=== PATIENT | male | born 1940 | race Caucasian/White ===

== ENCOUNTER 2016-07-24 17:45 | Emergency (ER) | payer MEDICARE, OTHER ==
[~2016-07-24] VITALS: Ht 185.4 cm; Wt 102.1 kg
[2016-07-24] MEDS ORDERED: LOSA100T36 (18:05)
[2016-07-24] MEDS ORDERED: FENO145T (18:05)
[2016-07-24] MEDS ORDERED: BABY (18:05)
[2016-07-24 20:50] VITALS: BP 133/93
--- NOTE | 2016-07-24 22:38 | REP ---
LEFT SHOULDER, COMPLETE: 07/24/2016. Clinical history: Trauma, patient fell down stairs. Four views provided. AC and glenohumeral joints show moderately severe degenerative change. There is no fracture of the clavicle or widening of the AC joint. Glenohumeral joint shows adequate range of motion with internal external rotation. No subluxation or dislocation on the scapular Y-view nor abnormal soft-tissue calcification. Clavicle, ribs, scapula and humerus without fracture. Impression: 1. Degenerative changes of the AC and glenohumeral joints without fracture, subluxation, soft tissue calcification or other acute finding. Signed by Neville Painter MD 07/25/2016 08:11 P
--- NOTE | 2016-07-24 22:40 | REP ---
LEFT ELBOW SERIES, COMPLETE: 07/24/2016. Clinical history: Trauma, patient fell on stairs. No prior studies. There is intra-articular complete fracture with distraction of the olecranon, the remainder of the ulna by at least 9 mm posteriorly. The triceps is still attached. There is prominent soft tissue swelling and hematoma. Radial head and capitellum align normally without subluxation, dislocation or fracture. I do not see supracondylar fracture or fractures through epicondyles of the distal humerus. Impression: 1. Distracted displaced fracture through the olecranon with the fracture fragment distracted proximally at least 9 mm with triceps attachment still in place. Signed by Neville Painter MD 07/25/2016 08:11 P
== END 2016-07-24 21:01 | disposition home or self-care (01) ==
LOC: M ED 20:34
DX: S52.022A Displaced fracture of olecranon process without intraarticular extension of left ulna, initial encounter for closed fracture (principal); S20.412A Abrasion of left back wall of thorax, initial encounter; S00.01XA Abrasion of scalp, initial encounter; S50.312A Abrasion of left elbow, initial encounter; W10.8XXA Fall (on) (from) other stairs and steps, initial encounter; Y92.018 Other place in single-family (private) house as the place of occurrence of the external cause; Y93.89 Activity, other specified; Y99.8 Other external cause status; E78.00 Pure hypercholesterolemia, unspecified

== ENCOUNTER 2020-02-22 15:39 | Emergency (ER) | payer MEDICARE, OTHER ==
[~2020-02-22] VITALS: Ht 185.4 cm; Wt 96.2 kg
[~2020-02-22 15:39] MED LIST: BABY; FENO145T7; LOSA100T50
[2020-02-22] MEDS ORDERED: XARE15TA (15:49)
[2020-02-22 16:44] LABS: BASO % 0.5 % (0.0-1.0); EOS # 0.1 10^3/uL (0.0-0.5); EOS % 0.7 % (0.0-3.0); HEMATOCRIT 47.9 % (42.0-52.0); HEMOGLOBIN 15.9 g/dl (13.5-17.5); LYMPH # 1.4 10^3/uL (1.5-5.0); LYMPH % 16.9 % (24.0-44.0); MEAN CORPUSCULAR HEMOGLOBIN 31.5 pg (27.0-33.0); MEAN CORPUSCULAR HGB CONC 33.2 g/dl (32.0-36.5); MEAN CORPUSCULAR VOLUME 94.9 fl (80.0-96.0); MONO # 0.8 10^3/uL (0.0-0.8); MONO % 9.1 % (0.0-5.0); NEUTROPHILS % 72.2 % (36.0-66.0); PLATELET COUNT, AUTOMATED 174 10^3/uL (150-450); RED BLOOD COUNT 5.05 10^6/uL (4.30-6.10); WHITE BLOOD COUNT 8.3 10^3/uL (4.0-10.0)
[2020-02-22 17:14] LABS: BLOOD UREA NITROGEN 18 MG/DL (7-18); CALCIUM LEVEL 9.9 MG/DL (8.8-10.2); CARBON DIOXIDE LEVEL 29 MEQ/L (21-32); CHLORIDE LEVEL 104 MEQ/L (98-107); CK-MB VALUE MASS 2.3 NG/ML (<3.6); CPK CREATINE PHOSPHOKINASE 128 U/L (39-308); CREATININE FOR GFR 1.36 MG/DL (0.70-1.30); GLOMERULAR FILTRATION RATE 53.8 (>42); GLUCOSE, FASTING 102 MG/DL (70-100); POTASSIUM SERUM 4.1 MEQ/L (3.5-5.1); SODIUM LEVEL 138 MEQ/L (136-145); TROPONIN I < 0.02 NG/ML (< 0.10)
[2020-02-22] MEDS ORDERED: ISOVUE-370 76% 100ML VIAL As Ordered ONE (17:52)
--- NOTE | 2020-02-22 18:21 | REPVR ---
PROCEDURE INFORMATION: Exam: CT Head Without Contrast Exam date and time: 02/22/2020 5:20 PM Age: 79 years old Clinical indication: Injury or trauma; Fall; Blunt trauma (contusions or hematomas); Additional info: Trauma on Wednesday TECHNIQUE: Imaging protocol: Computed tomography of the head without contrast. Radiation optimization: All CT scans at this facility use at least one of these dose optimization techniques: automated exposure control; mA and/or kV adjustment per patient size (includes targeted exams where dose is matched to clinical indication); or iterative reconstruction. COMPARISON: No relevant prior studies available. FINDINGS: Brain: There is no acute intracranial hemorrhage, cerebral edema, or midline shift. Age-related cerebral and cerebellar volume loss is present. Cerebral ventricles: No hydrocephalus. Bones/joints: No acute fracture. Paranasal sinuses: There is no acute sinusitis. Mastoid air cells: The mastoid air cells are clear. Orbital cavity: The included orbital structures are unremarkable. Vasculature: Atherosclerotic calcifications are seen involving the cavernous carotid arteries. Soft tissues: Unremarkable. IMPRESSION: No acute intracranial abnormality. Electronically signed by: Brien Mejia On 02/22/2020 18:21:30 PM
--- NOTE | 2020-02-22 18:26 | REPVR ---
PROCEDURE INFORMATION: Exam: CT Cervical Spine Without Contrast Exam date and time: 02/22/2020 5:20 PM Age: 79 years old Clinical indication: Injury or trauma; Fall; Blunt trauma; Additional info: Trauma on Wednesday TECHNIQUE: Imaging protocol: Computed tomography images of the cervical spine without contrast. Radiation optimization: All CT scans at this facility use at least one of these dose optimization techniques: automated exposure control; mA and/or kV adjustment per patient size (includes targeted exams where dose is matched to clinical indication); or iterative reconstruction. COMPARISON: No relevant prior studies available. FINDINGS: Bones/joints: There is straightening of the normal cervical lordosis. No acute fracture is identified. Discs/Spinal canal/Neural foramina: Moderate/severe degenerative changes of the cervical spine are present. There is no severe spinal canal stenosis. Severe multilevel neural foraminal narrowing from uncinate spurring and facet arthropathy is noted. Soft tissues: Unremarkable. Lungs: Centrilobular emphysema is present in the upper lobes. Vasculature: Atherosclerotic calcifications are present at the carotid bifurcations. IMPRESSION: 1. No acute abnormality. 2. Chronic findings as discussed above. Electronically signed by: Brien Mejia On 02/22/2020 18:25:37 PM
--- NOTE | 2020-02-22 18:35 | REPVR ---
PROCEDURE INFORMATION: Exam: CT Chest With Contrast Exam date and time: 02/22/2020 5:20 PM Age: 79 years old Clinical indication: Injury or trauma; Fall; Blunt trauma (contusions or hematomas); Additional info: Trauma on Wednesday TECHNIQUE: Imaging protocol: Computed tomography of the chest with intravenous contrast. 3D rendering (Not supervised by radiologist): MIP and/or 3D reconstructed images were created by the technologist. Radiation optimization: All CT scans at this facility use at least one of these dose optimization techniques: automated exposure control; mA and/or kV adjustment per patient size (includes targeted exams where dose is matched to clinical indication); or iterative reconstruction. Contrast material: ISOVUE 370; Contrast volume: 75 ml; Contrast route: INTRAVENOUS (IV); COMPARISON: CR CHEST 2 VIEW 09/19/2013 10:19 AM (report not provided) FINDINGS: Lungs: The lungs demonstrate moderate upper lobe predominant centrilobular emphysematous disease. Mild dependent atelectasis is present bilaterally. There is also mild airspace consolidation or contusion in the posterolateral aspect of the left lower lobe inferiorly. Pleural space: Unremarkable. No pneumothorax. No pleural effusion. Heart: Coronary artery calcifications are noted. No significant pericardial effusion. Mediastinal space: No mediastinal hematoma is identified. Aorta: The thoracic aorta is nonaneurysmal. Atherosclerotic vascular calcifications are noted. Lymph nodes: Unremarkable. No enlarged lymph nodes. Gallbladder and bile ducts: Stones are present in the gallbladder. Bones/joints: There are acute, nondisplaced fractures of the left 6th and 7th ribs laterally. No other acute fracture of the visualized skeleton is identified. There are also multiple chronic left rib fractures. Degenerative changes involve the spine and shoulders. Soft tissues: Unremarkable. IMPRESSION: 1. Acute, nondisplaced fractures of the left 6th and 7th ribs laterally. 2. Mild airspace consolidation or contusion in the posterolateral aspect of the left lower lobe inferiorly. 3. Moderate upper lobe predominant emphysematous disease. 4. Cholelithiasis. Electronically signed by: Alejo Babcock On 02/22/2020 18:34:53 PM
[2020-02-22 20:00] VITALS: BP 171/84
--- NOTE | 2020-02-23 10:00 | ECGEPIP ---
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
== END 2020-02-22 20:20 | disposition home or self-care (01) ==
LOC: M ED 15:39
DX: S22.42XA Multiple fractures of ribs, left side, initial encounter for closed fracture (principal); S27.329A Contusion of lung, unspecified, initial encounter; W01.0XXA Fall on same level from slipping, tripping and stumbling without subsequent striking against object, initial encounter; Y92.89 Other specified places as the place of occurrence of the external cause; I10 Essential (primary) hypertension; E78.9 Disorder of lipoprotein metabolism, unspecified; Z79.899 Other long term (current) drug therapy; Z79.01 Long term (current) use of anticoagulants; Z87.891 Personal history of nicotine dependence
CPT/HCPCS: 36415; 70450; 71260; 72125; 80048; 82550; 82553; 84484; 85025; 93005; 93041; 94760; 99285; Q9967

== ENCOUNTER → 2020-02-26 | Outpatient (CLI) | payer MEDICARE, OTHER ==
[~2020-02-26] MED LIST changes: +XARE15TA
--- NOTE | 2020-02-26 10:17 | REPPI ---
INDICATION: S22.42XA MULTIPLE FRACTURES OF RIBS, LEFT SIDE. COMPARISON: CT chest 02/22/2020, chest x-ray 03/08/2018 TECHNIQUE: Views FINDINGS: Lung smith are well inflated. Subsegmental atelectatic change and slight blunting of the left CP angle are again seen a nondisplaced left 6th and 7th rib fractures seen on CT do not show interval the displacement or angulation. Remainder of the left lung and the entire right lung were unchanged and show no acute infiltrate. There is emphysematous change in the mid and upper lung zone bilaterally. Heart size unchanged the aorta and airway intact. The bony thorax shows no compression deformity. IMPRESSION: Left CP angle patchy atelectasis or infiltrate and trace fluid density with the pleural thickening not present on chest x-ray in 2018 but in the same area where posttraumatic changes are seen in the left lower lobe with adjacent nondisplaced rib fractures. No pneumothoraxx. There has been no interval displacement of the left lateral 6th and 7th rib fractures which are only confidently visible by CT at this time. <Electronically signed by Neville Painter > 02/26/20 [id number]
== END ==
LOC: M PLAIMG 09:25
PROVIDERS: ATTEND Thoracic Surgery (Cardiothoracic Vascular Surgery)
DX: S22.42XA Multiple fractures of ribs, left side, initial encounter for closed fracture (principal)

== ENCOUNTER → 2020-12-25 | Outpatient (CLI) | payer MEDICARE, OTHER | LOC: M LABSMTC 10:32 | PROVIDERS: ATTEND Anesthesiology | DX: Z01.818 Encounter for other preprocedural examination (principal); Z11.52 Encounter for screening for COVID-19 ==

== ENCOUNTER 2020-12-30 11:08 | Day surgery (SDC) | payer MEDICARE, OTHER ==
[~2020-12-30] VITALS: Ht 185.4 cm; Wt 96.2 kg
[~2020-12-30 11:08] MED LIST changes: +NS 1,000 ML IV ONE
[2020-12-30] MEDS ORDERED: propofoL 200 MG/20 ML VIAL As Ordered ONE (12:50)
--- NOTE | 2020-12-30 13:07 | ROOR ---
Patient Name: Vishnu Martin Procedure Date: 12/30/2020 12:41 PM Date of : 1940 Age: 80 Room: [facility] Gender: Male Note Status: Finalized Procedure: Total Colonoscopy to Cecum + ileoscopy + Cold Snare Polypectomy + Hemoclip Indications: High risk colon cancer surveillance: Personal history of colonic polyps, Last colonoscopy: 2013 Providers: Talon Velásquez MD Referring MD: TONYA WYATT JR, MD Requesting Provider: Medicines: Monitored Anesthesia Care Complications: No immediate complications. Procedure: Pre-Anesthesia Assessment: - The heart rate, respiratory rate, oxygen saturations, blood pressure, adequacy of pulmonary ventilation, and response to care were monitored throughout the procedure. The Colonoscope was introduced through the anus and advanced to the terminal ileum, with identification of the appendiceal orifice and IC valve. The colonoscopy was performed without difficulty. The patient tolerated the procedure well. The quality of the bowel preparation was good. Findings: The perianal and digital rectal examinations were normal. Non-bleeding internal hemorrhoids were found during retroflexion. The hemorrhoids were small and Grade I (internal hemorrhoids that do not prolapse). Multiple small and large-mouthed diverticula were found in the recto-sigmoid colon, sigmoid colon and descending colon. A small polyp was found at 30 cm proximal to the anus. The polyp was sessile. The polyp was removed with a cold snare. Resection and retrieval were complete. To prevent bleeding after the polypectomy, one hemostatic clip was successfully placed. There was no bleeding at the end of the procedure. The exam was otherwise without abnormality on direct and retroflexion views. Impression: - Non-bleeding internal hemorrhoids. - Diverticulosis in the recto-sigmoid colon, in the sigmoid colon and in the descending colon. - One small polyp at 30 cm proximal to the anus, removed with a cold snare. Resected and retrieved. Clip was placed. - The examination was otherwise normal on direct and retroflexion views. - The exam was otherwise normal to the cecum. - The examined portion of the ileum was normal. Recommendation: - Patient has a contact number available for emergencies. The signs and symptoms of potential delayed complications were discussed with the patient. Return to normal activities tomorrow. Written discharge instructions were provided to the patient. - High fiber diet. - Discharge patient to home. - Continue present medications. - Await pathology results. - Telephone GI clinic for pathology results in 1 week. - Repeat colonoscopy is not recommended due to current age (66 years or older) for screening purposes. - Return to referring physician. - The findings and recommendations were discussed with the patient. Procedure Code(s): --- Professional --- 38497, Colonoscopy, flexible; with removal of tumor(s), polyp(s), or other lesion(s) by snare technique Diagnosis Code(s): --- Professional --- Z86.010, Personal history of colonic polyps K64.0, First degree hemorrhoids K63.5, Polyp of colon K57.30, Diverticulosis of large intestine without perforation or abscess without bleeding CPT copyright 2019 [employer]. All rights reserved. The codes documented in this report are preliminary and upon yardage control operator forming review may be revised to meet current compliance requirements. Talon Velásquez MD Talon Velásquez MD 12/30/2020 1:06:54 PM Electronically signed by Talon Velásquez MD Number of Addenda: 0 Note Initiated On: 12/30/2020 12:41 PM Estimated Blood Loss: Estimated blood loss: none.
[2020-12-30 13:38] VITALS: BP 164/82
== END 2020-12-30 13:45 | disposition home or self-care (01) ==
LOC: M OPP 11:08
PROVIDERS: ATTEND Internal Medicine Gastroenterology
DX: Z12.11 Encounter for screening for malignant neoplasm of colon (principal); Z86.010 Personal history of colon polyps; D12.6 Benign neoplasm of colon, unspecified; K64.0 First degree hemorrhoids; K57.30 Diverticulosis of large intestine without perforation or abscess without bleeding; Z79.899 Other long term (current) drug therapy; Z87.891 Personal history of nicotine dependence

== ENCOUNTER → 2021-09-04 | Outpatient (CLI) | payer MEDICARE, OTHER ==
[~2021-09-04] MED LIST changes: +LOSA100T45; -LOSA100T50; -NS 1,000 ML IV ONE
== END ==
LOC: M RAD 10:10
PROVIDERS: ATTEND Internal Medicine
DX: I71.4 Abdominal aortic aneurysm, without rupture (principal)

== ENCOUNTER → 2022-02-25 | Outpatient (CLI) | payer MEDICARE, OTHER | LOC: M RAD 08:05 | PROVIDERS: ATTEND Internal Medicine | DX: I71.40 Abdominal aortic aneurysm, without rupture, unspecified (principal) ==

== ENCOUNTER → 2023-03-09 | Outpatient (CLI) | payer MEDICARE, OTHER ==
[~2023-03-09] MED LIST changes: -LOSA100T45; +LOSA100T46
== END ==
LOC: M RAD 08:29
PROVIDERS: ATTEND Internal Medicine
DX: I71.40 Abdominal aortic aneurysm, without rupture, unspecified (principal)

== ENCOUNTER → 2023-04-01 | Outpatient (REF) | payer MEDICARE, OTHER | LOC: M LAB REF 19:39 | PROVIDERS: ATTEND Nurse Practitioner Family | DX: S80.862A Insect bite (nonvenomous), left lower leg, initial encounter (principal); X58.XXXA Exposure to other specified factors, initial encounter; Y92.9 Unspecified place or not applicable; Y93.9 Activity, unspecified; Y99.9 Unspecified external cause status ==

== ENCOUNTER 2023-10-04 08:59 | Emergency (ER) | payer MEDICARE, OTHER ==
[~2023-10-04] VITALS: Ht 188 cm; Wt 98.1 kg
[2023-10-04 12:40] LABS: BASO % 0.4 % (0.0-1.0); HEMATOCRIT 43.5 % (42.0-52.0); HEMOGLOBIN 14.8 g/dl (13.5-17.5); LYMPH # 0.6 10^3/uL (1.5-5.0); LYMPH % 5.6 % (24.0-44.0); MEAN CORPUSCULAR HEMOGLOBIN 31.5 pg (27.0-33.0); MEAN CORPUSCULAR VOLUME 92.6 fl (80.0-96.0); MONO # 0.6 10^3/uL (0.0-0.8); MONO % 5.6 % (2.0-8.0); NEUTROPHILS # 9.1 10^3/uL (1.5-8.5); NEUTROPHILS % 87.6 % (36.0-66.0); PLATELET COUNT, AUTOMATED 155 10^3/uL (150-450); WHITE BLOOD COUNT 10.4 10^3/uL (4.0-10.0)
[2023-10-04 12:58] LABS: ALBUMIN 3.5 G/DL (3.2-5.2); ALKALINE PHOSPHATASE 61 U/L (46-116); ALT/SGPT 25 U/L (7.0-40); AST/SGOT 61 U/L (<34); BILIRUBIN,TOTAL 0.9 MG/DL (0.3-1.2); BLOOD UREA NITROGEN 15 MG/DL (9-23); CALCIUM LEVEL 9.2 MG/DL (8.3-10.6); CARBON DIOXIDE LEVEL 24 MMOL/L (20-31); CHLORIDE LEVEL 107 MMOL/L (98-107); CREATININE FOR GFR 1.12 MG/DL (0.70-1.30); GLOMERULAR FILTRATION RATE > 60.0 (>35); GLUCOSE, FASTING 124 MG/DL (74-106); POTASSIUM SERUM 3.6 MMOL/L (3.5-5.1); SODIUM LEVEL 137 MMOL/L (136-145); TOTAL PROTEIN 6.3 G/DL (5.7-8.2)
[2023-10-04 14:14] VITALS: BP 126/59; TEMP 98.3; O2SAT 95
== END 2023-10-04 14:24 | disposition home or self-care (01) ==
LOC: M ED 08:59
DX: S00.83XA Contusion of other part of head, initial encounter (principal); S50.02XA Contusion of left elbow, initial encounter; Y92.9 Unspecified place or not applicable; Y93.9 Activity, unspecified; Y99.9 Unspecified external cause status; I10 Essential (primary) hypertension; E78.5 Hyperlipidemia, unspecified; F10.10 Alcohol abuse, uncomplicated; Z79.899 Other long term (current) drug therapy

== ENCOUNTER → 2024-02-02 | Outpatient (REF) | payer MEDICARE, OTHER | LOC: M LAB REF 17:18 | PROVIDERS: ATTEND Internal Medicine | DX: I48.0 Paroxysmal atrial fibrillation (principal); I11.9 Hypertensive heart disease without heart failure; G47.33 Obstructive sleep apnea (adult) (pediatric) ==

== ENCOUNTER 2024-03-22 14:28 | Emergency (ER) | payer MEDICARE, OTHER ==
[2024-03-22] VITALS (8 sets, daily range): BP systolic 128–164; BP diastolic 73–89; TEMP 97.2–98.7; O2SAT 95–99
[~2024-03-22] VITALS: Ht 188 cm; Wt 88.2 kg
[2024-03-22] MEDS ORDERED: ISOVUE-370 76% 100ML VIAL As Ordered ONE (15:06)
[2024-03-22 15:47] LABS: INR 1.76; PARTIAL THROMBOPLASTIN TIME 37.9 SECONDS (24.8-34.2); PROTHROMBIN TIME 20.7 SECONDS (12.5-14.5)
[2024-03-22 15:51] LABS: BASO # 0.1 10^3/uL (0.0-0.2); BASO % 0.8 % (0.0-1.0); CK-MB VALUE MASS 2.1 NG/ML (<3.6); EOS # 0.1 10^3/uL (0.0-0.5); EOS % 1.4 % (0.0-3.0); HEMATOCRIT 49.3 % (42.0-52.0); HEMOGLOBIN 16.1 g/dl (13.5-17.5); LYMPH # 1.6 10^3/uL (1.5-5.0); LYMPH % 23.1 % (24.0-44.0); MEAN CORPUSCULAR HEMOGLOBIN 30.5 pg (27.0-33.0); MEAN CORPUSCULAR HGB CONC 32.7 g/dl (32.0-36.5); MEAN CORPUSCULAR VOLUME 93.4 fl (80.0-96.0); MONO # 0.6 10^3/uL (0.0-0.8); MONO % 8.3 % (2.0-8.0); NEUTROPHILS # 4.7 10^3/uL (1.5-8.5); NEUTROPHILS % 65.8 % (36.0-66.0); PLATELET COUNT, AUTOMATED 142 10^3/uL (150-450); RED BLOOD COUNT 5.28 10^6/uL (4.30-6.10); WHITE BLOOD COUNT 7.1 10^3/uL (4.0-10.0)
[2024-03-22 15:53] LABS: CREATININE FOR GFR 1.3 MG/DL (0.70-1.30); GLOMERULAR FILTRATION RATE 56.1 (>35)
[2024-03-22 15:59] LABS: MB/CK RELATIVE INDEX 1.59 (< OR =4)
[2024-03-22] MEDS ORDERED: ROSU10TA61 (16:43)
[2024-03-22] MEDS ORDERED: BUME0.5T2 (16:43)
== END 2024-03-22 19:49 | disposition short-term general hospital (02) ==
LOC: M ED 14:28
DX: I63.9 Cerebral infarction, unspecified (principal); I65.29 Occlusion and stenosis of unspecified carotid artery; I48.91 Unspecified atrial fibrillation; E78.5 Hyperlipidemia, unspecified; F10.10 Alcohol abuse, uncomplicated; Z87.891 Personal history of nicotine dependence; Z79.01 Long term (current) use of anticoagulants
CPT/HCPCS: 36415; 70450; 70496; 70498; 71045; 72125; 73130; 80047; 80048; 82550; 82553; 84484; 85025; 85610; 85730; 93005; 93041; 94760; 99285; Q9967

== ENCOUNTER 2024-07-02 13:19 | Inpatient (IN) | payer MEDICARE, OTHER ==
[~2024-07-02] VITALS: Ht 188 cm; Wt 86.8 kg
[~2024-07-02 13:19] MED LIST changes: +BUME0.5T2 PO; +ROSU10TA61
[2024-07-02] MEDS ORDERED: ISOVUE-370 76% 100ML VIAL As Ordered ONE (14:07)
[2024-07-02 14:20] LABS: BASO % 0.6 % (0.0-1.0); EOS % 0.8 % (0.0-3.0); HEMATOCRIT 46.3 % (42.0-52.0); HEMOGLOBIN 15.5 g/dl (13.5-17.5); LYMPH # 0.7 10^3/uL (1.5-5.0); LYMPH % 13.9 % (24.0-44.0); MEAN CORPUSCULAR HEMOGLOBIN 30.6 pg (27.0-33.0); MEAN CORPUSCULAR HGB CONC 33.5 g/dl (32.0-36.5); MEAN CORPUSCULAR VOLUME 91.3 fl (80.0-96.0); MONO # 0.7 10^3/uL (0.0-0.8); MONO % 14.1 % (2.0-8.0); NEUTROPHILS # 3.7 10^3/uL (1.5-8.5); RED BLOOD COUNT 5.07 10^6/uL (4.30-6.10); WHITE BLOOD COUNT 5.3 10^3/uL (4.0-10.0)
[2024-07-02 14:21] LABS: KETONE, URINE AUTO RFX NEGATIVE (NEGATIVE); LEUKOCYTE ESTERASE UR AUTO RFX NEGATIVE (NEGATIVE); MUCUS, URINE RFX SMALL (NEGATIVE); NITRITE, URINE AUTO RFX NEGATIVE (NEGATIVE); RBC, URINE AUTO RFX 0 /HPF (0-3); SQUAM EPITHELIAL CELL UR AURFX 0 /HPF (0-6); WBC, URINE AUTO RFX 0 /HPF (0-3)
[2024-07-02 14:26] LABS: PLATELET COUNT, AUTOMATED 98 10^3/uL (150-450)
[2024-07-02 14:30] LABS: INR 1.34; PROTHROMBIN TIME 16.9 SECONDS (12.5-14.5)
[2024-07-02 14:52] LABS: BLOOD UREA NITROGEN 16 MG/DL (9-23); CARBON DIOXIDE LEVEL 26 MMOL/L (20-31); CHLORIDE LEVEL 103 MMOL/L (98-107); CK-MB VALUE MASS < 1.0 NG/ML (<3.6); GLOMERULAR FILTRATION RATE > 60.0 (>35); GLUCOSE, FASTING 125 MG/DL (74-106); POTASSIUM SERUM 4.1 MMOL/L (3.5-5.1); SODIUM LEVEL 138 MMOL/L (136-145)
[2024-07-02 14:55] LABS: CPK CREATINE PHOSPHOKINASE 179 U/L (46-171); MB/CK RELATIVE INDEX 0.55 (< OR =4)
[2024-07-02 16:00] LABS: CK-MB VALUE MASS < 1.0 NG/ML (<3.6)
[2024-07-02 16:16] LABS: CPK CREATINE PHOSPHOKINASE 165 U/L (46-171)
[2024-07-02] MEDS: OSELTAMIVIR PHOSPHATE 75 MG CAP PO ONE (16:53)
[2024-07-02] MEDS: NS (Normal Saline) 0.9% 1,000 ML IV ONE (16:53)
[2024-07-02] MEDS ORDERED: NITR0.4S14 PO (17:01)
[2024-07-02] MEDS ORDERED: ELIQ5TAB PO ×2 (17:01→19:45)
[2024-07-02] MEDS ORDERED: ROSU40TA81 PO (17:01)
[2024-07-02] MEDS ORDERED: ASPI-226 PO (17:01)
[2024-07-02] MEDS ORDERED: PANT40TA29 PO (17:01)
[2024-07-02] MEDS ORDERED: CLOP75TA2 PO (17:01)
[2024-07-02] MEDS ORDERED: CARV6.25 PO (17:01)
[2024-07-02 17:39] LABS: CK-MB VALUE MASS < 1.0 NG/ML (<3.6)
[2024-07-02 17:54] LABS: CPK CREATINE PHOSPHOKINASE 189 U/L (46-171); MB/CK RELATIVE INDEX 0.52 (< OR =4)
[2024-07-02] MEDS ORDERED: guaiFENesin SYRUP 200MG 10ML UDC PO PRN (18:25)
[2024-07-02] MEDS: OSELTAMIVIR PHOSPHATE 30MG CAPSULE PO SCH (20:25)
[2024-07-02] MEDS ORDERED: MULT-90 PO (20:52)
[2024-07-02] MEDS ORDERED: ACET-683 PO (20:52)
[2024-07-02] MEDS ORDERED: HOME MED LIST COMPLETE! XX SCH (20:55)
[2024-07-02] MEDS: ALBUTEROL 90 MCG/ACT 8GM HFA INHALER INH SCH (21:08)
[2024-07-02] MEDS: APIXABAN 5 MG TAB (ELIQUIS) PO SCH (21:13)
[2024-07-02] MEDS: DOCUSATE SODIUM 100MG CAPSULE PO SCH (21:13)
[2024-07-02] MEDS: CARVedilol 6.25 MG TAB PO SCH (21:13)
[2024-07-02 21:53] VITALS: BP 123/57; TEMP 101.2; O2SAT 96
[2024-07-02] MEDS: ACETAMINOPHEN 325 MG TAB PO PRN (22:29)
[2024-07-02] MEDS ORDERED: NITROGLYCERIN 0.4MG SUBL TABLET SL PRN (22:50)
[2024-07-02 23:52] VITALS: BP 115/72; TEMP 101.3; O2SAT 96
[2024-07-03] VITALS (8 sets, daily range): BP systolic 106–136; BP diastolic 56–76; TEMP 97.9–99.2; O2SAT 93–97
[2024-07-03 05:54] LABS: BASO % 0.6 % (0.0-1.0); EOS # 0.1 10^3/uL (0.0-0.5); HEMATOCRIT 44.1 % (42.0-52.0); HEMOGLOBIN 14.7 g/dl (13.5-17.5); LYMPH # 0.9 10^3/uL (1.5-5.0); LYMPH % 17.7 % (24.0-44.0); MEAN CORPUSCULAR HEMOGLOBIN 30.7 pg (27.0-33.0); MEAN CORPUSCULAR HGB CONC 33.3 g/dl (32.0-36.5); MEAN CORPUSCULAR VOLUME 92.1 fl (80.0-96.0); MONO # 0.6 10^3/uL (0.0-0.8); MONO % 12.9 % (2.0-8.0); NEUTROPHILS # 3.3 10^3/uL (1.5-8.5); RED BLOOD COUNT 4.79 10^6/uL (4.30-6.10)
[2024-07-03 06:03] LABS: PLATELET COUNT, AUTOMATED 91 10^3/uL (150-450)
[2024-07-03 06:21] LABS: BLOOD UREA NITROGEN 16 MG/DL (9-23); CALCIUM LEVEL 8.7 MG/DL (8.3-10.6); CARBON DIOXIDE LEVEL 27 MMOL/L (20-31); CHLORIDE LEVEL 105 MMOL/L (98-107); CREATININE FOR GFR 1.04 MG/DL (0.70-1.30); GLOMERULAR FILTRATION RATE > 60.0 (>35); GLUCOSE, FASTING 97 MG/DL (74-106); POTASSIUM SERUM 3.8 MMOL/L (3.5-5.1); SODIUM LEVEL 139 MMOL/L (136-145)
[2024-07-03] MEDS: ROSUVASTATIN 10 MG TAB (CRESTOR) PO SCH (08:56)
[2024-07-03] MEDS: ASPIRIN 81MG ENTERIC TABLET PO SCH (08:56)
[2024-07-03] MEDS: CLOPIDOGREL 75 MG TAB PO SCH (08:58)
[2024-07-03] MEDS: PANTOPRAZOLE 40MG TAB (PROTONIX) PO SCH (08:58)
[2024-07-04 03:29] VITALS: BP 141/83; TEMP 97.4; O2SAT 97
[2024-07-04 06:15] LABS: BASO % 0.3 % (0.0-1.0); EOS # 0.1 10^3/uL (0.0-0.5); HEMATOCRIT 44.1 % (42.0-52.0); HEMOGLOBIN 14.7 g/dl (13.5-17.5); LYMPH # 1.1 10^3/uL (1.5-5.0); LYMPH % 15.9 % (24.0-44.0); MEAN CORPUSCULAR HEMOGLOBIN 30.5 pg (27.0-33.0); MEAN CORPUSCULAR HGB CONC 33.3 g/dl (32.0-36.5); MEAN CORPUSCULAR VOLUME 91.5 fl (80.0-96.0); MONO # 0.6 10^3/uL (0.0-0.8); MONO % 9.3 % (2.0-8.0); NEUTROPHILS % 72.8 % (36.0-66.0); RED BLOOD COUNT 4.82 10^6/uL (4.30-6.10); WHITE BLOOD COUNT 6.8 10^3/uL (4.0-10.0)
[2024-07-04 06:26] LABS: PLATELET COUNT, AUTOMATED 89 10^3/uL (150-450)
[2024-07-04 06:39] LABS: BLOOD UREA NITROGEN 16 MG/DL (9-23); CALCIUM LEVEL 8.6 MG/DL (8.3-10.6); CARBON DIOXIDE LEVEL 26 MMOL/L (20-31); CHLORIDE LEVEL 102 MMOL/L (98-107); CREATININE FOR GFR 0.98 MG/DL (0.70-1.30); GLOMERULAR FILTRATION RATE > 60.0 (>35); GLUCOSE, FASTING 101 MG/DL (74-106); POTASSIUM SERUM 3.9 MMOL/L (3.5-5.1); SODIUM LEVEL 137 MMOL/L (136-145)
[2024-07-04 07:33] VITALS: BP 122/64; TEMP 98; O2SAT 97
[2024-07-04 08:56] VITALS: BP 122/64
[2024-07-04] MEDS ORDERED: OSEL30CA PO (10:42)
== END 2024-07-04 15:52 | disposition home or self-care (01) | DRG 57 ==
LOC: M ED 13:19 → M ED INP 18:22 → M PCU 21:49
PROVIDERS: ADMIT Internal Medicine Nephrology; ATTEND Internal Medicine Nephrology
DX: I69.351 Hemiplegia and hemiparesis following cerebral infarction affecting right dominant side (principal); I48.92 Unspecified atrial flutter; I25.10 Atherosclerotic heart disease of native coronary artery without angina pectoris; I49.5 Sick sinus syndrome; I10 Essential (primary) hypertension; J10.1 Influenza due to other identified influenza virus with other respiratory manifestations; E78.5 Hyperlipidemia, unspecified; G47.33 Obstructive sleep apnea (adult) (pediatric); M54.9 Dorsalgia, unspecified; G89.29 Other chronic pain; Z87.891 Personal history of nicotine dependence; Z95.5 Presence of coronary angioplasty implant and graft; Z95.828 Presence of other vascular implants and grafts; Z95.0 Presence of cardiac pacemaker; Z79.82 Long term (current) use of aspirin; Z79.01 Long term (current) use of anticoagulants; Z79.899 Other long term (current) drug therapy

== ENCOUNTER → 2024-07-18 | Outpatient (REF) | payer MEDICARE, OTHER ==
[~2024-07-18] MED LIST changes: +ACET-683 PO; +ASPI-226 PO; +CARV6.25 PO; +CLOP75TA2 PO; +ELIQ5TAB PO; +MULT-90 PO; +NITR0.4S14 PO; +OSEL30CA PO; +PANT40TA29 PO; +ROSU40TA81 PO
== END ==
LOC: M LAB REF 12:18
PROVIDERS: ATTEND Internal Medicine
DX: I48.0 Paroxysmal atrial fibrillation (principal); I11.9 Hypertensive heart disease without heart failure; I25.118 Atherosclerotic heart disease of native coronary artery with other forms of angina pectoris

== ENCOUNTER 2024-11-17 20:03 | Emergency (ER) | payer MEDICARE, OTHER ==
[~2024-11-17] VITALS: Ht 188 cm; Wt 87.0 kg
[~2024-11-17 20:03] MED LIST changes: +BUME1TAB3 PO
[2024-11-17 20:04] VITALS: TEMP 96.9
[2024-11-17 20:57] LABS: BASO # 0.1 10^3/uL (0.0-0.2); BASO % 1.0 % (0.0-1.0); EOS # 0.1 10^3/uL (0.0-0.5); EOS % 1.2 % (0.0-3.0); LYMPH # 1.3 10^3/uL (1.5-5.0); LYMPH % 18.4 % (24.0-44.0); MONO # 0.6 10^3/uL (0.0-0.8); MONO % 8.7 % (2.0-8.0); NEUTROPHILS # 4.8 10^3/uL (1.5-8.5); NEUTROPHILS % 70.1 % (36.0-66.0); PLATELET COUNT, AUTOMATED 108 10^3/uL (150-450)
[2024-11-17 21:21] LABS: CALCIUM LEVEL 9.5 MG/DL (8.3-10.6); CARBON DIOXIDE LEVEL 28.0 MMOL/L (20-31); CHLORIDE LEVEL 105.0 MMOL/L (98-107); CREATININE FOR GFR 1.19 MG/DL (0.70-1.30); GLOMERULAR FILTRATION RATE 60.2 (>35); POTASSIUM SERUM 4.3 MMOL/L (3.5-5.1); SODIUM LEVEL 143.0 MMOL/L (136-145)
[2024-11-17] MEDS ORDERED: ISOVUE-370 76% 100 ML VIAL As Ordered ONE (21:21)
[2024-11-17 22:45] VITALS: BP 139/77
[2024-11-17] MEDS: traMADol 50 MG TAB PO ONE (22:55)
[2024-11-17] MEDS: ACETAMINOPHEN *IV* 1,000 MG in IV 1 EA IV ONE (22:55)
[2024-11-17 23:03] VITALS: O2SAT 97
== END 2024-11-17 23:20 | disposition home or self-care (01) ==
LOC: M ED 20:03
DX: S20.214A Contusion of middle front wall of thorax, initial encounter (principal); S00.03XA Contusion of scalp, initial encounter; Y92.019 Unspecified place in single-family (private) house as the place of occurrence of the external cause; Y93.9 Activity, unspecified; Y99.9 Unspecified external cause status; W19.XXXA Unspecified fall, initial encounter; I25.119 Atherosclerotic heart disease of native coronary artery with unspecified angina pectoris; I25.2 Old myocardial infarction; I10 Essential (primary) hypertension; E78.5 Hyperlipidemia, unspecified; Z79.01 Long term (current) use of anticoagulants; Z79.899 Other long term (current) drug therapy
CPT/HCPCS: 36415; 70450; 71260; 72125; 80047; 80048; 85025; 99284; Q9967

== ENCOUNTER → 2025-01-03 | Outpatient (CLI) | payer MEDICARE, OTHER | LOC: M RAD 08:16 | PROVIDERS: ATTEND Internal Medicine | DX: I71.40 Abdominal aortic aneurysm, without rupture, unspecified (principal) ==

== ENCOUNTER → 2025-01-16 | Outpatient (REF) | payer MEDICARE, OTHER | LOC: M LAB REF 12:07 | PROVIDERS: ATTEND Internal Medicine | DX: I11.9 Hypertensive heart disease without heart failure (principal); Z79.899 Other long term (current) drug therapy ==